=== PATIENT | female | born 2000 | race Caucasian/White ===

== ENCOUNTER → 2019-01-28 | Outpatient (REF) | payer OTHER | LOC: M LAB LCGH 14:05 | PROVIDERS: ATTEND Orthopaedic Surgery | DX: Z18.9 Retained foreign body fragments, unspecified material (principal) ==

== ENCOUNTER → 2021-05-29 | Outpatient (CLI) | payer MEDICAID, OTHER ==
[~2021-05-29] MED LIST: ENSK1TAB3 PO
== END ==
LOC: M LABSMTC 11:06
PROVIDERS: ATTEND Anesthesiology
DX: Z01.818 Encounter for other preprocedural examination (principal); Z11.52 Encounter for screening for COVID-19

== ENCOUNTER 2021-06-03 06:04 | Day surgery (SDC) | payer MEDICAID ==
[~2021-06-03] VITALS: Ht 167.6 cm; Wt 79.1 kg
[~2021-06-03 06:04] MED LIST changes: +LR 1,000 ML IV ONE
[2021-06-03] MEDS ORDERED: OXYMETAZOLINE 0.05% NASAL SPRAY (AFRIN) As Ordered ONE (07:09)
[2021-06-03] MEDS ORDERED: BUPIVACAINE/EPIN 0.5% 30 ML VIAL As Ordered ONE (07:10)
[2021-06-03] MEDS ORDERED: propofoL 200 MG/20 ML VIAL As Ordered ONE (07:19)
[2021-06-03] MEDS ORDERED: LIDOCAINE 2% 100MG/5ML SDV (FOR ANES.) As Ordered ONE (07:19)
[2021-06-03] MEDS ORDERED: ROCURONIUM BROMIDE 50 MG/5 ML VIAL As Ordered ONE (07:19)
[2021-06-03] MEDS ORDERED: fentaNYL 250 MCG/5 ML INJECTION As Ordered ONE (07:20)
[2021-06-03] MEDS ORDERED: MIDAZOLAM INJ 2MG/2ML VIAL (J2250 PER 1MG) As Ordered ONE (07:20)
[2021-06-03] MEDS ORDERED: ONDANSETRON 4MG/2ML VIAL As Ordered ONE (07:43)
[2021-06-03] MEDS ORDERED: ACETAMINOPHEN 1000MG 100ML IV BTL (OFIRMEV) (J0131 PER 10MG) As Ordered ONE (07:43)
[2021-06-03] MEDS ORDERED: dexameTHASONE 4 MG/ML 1ML VIAL (J1100 PER 1MG) As Ordered ONE (07:43)
[2021-06-03] MEDS ORDERED: KETOROLAC 60MG 2ML VIAL As Ordered ONE (07:43)
[2021-06-03] MEDS ORDERED: SUGAMMADEX SODIUM 500 MG/5 ML VIAL (BRIDION) As Ordered ONE (07:50)
[2021-06-03] MEDS ORDERED: METOCLOPRAMIDE INJ 10MG/2ML VIAL (J2765 PER 1) IV PRN (08:20)
[2021-06-03] MEDS ORDERED: PERCOCET 5MG/325MG TAB PO PRN (08:20)
[2021-06-03] MEDS ORDERED: LR 1,000 ML IV SCH ×2 (08:20→08:40)
[2021-06-03] MEDS ORDERED: fentaNYL 100 MCG/2 ML INJECTION IV PRN (08:20)
[2021-06-03] MEDS ORDERED: ONDANSETRON 4MG/2ML VIAL IV PRN ×2 (08:20→08:45)
[2021-06-03] MEDS ORDERED: HYDROcodone/APAP LIQUID 7.5-325MG 15ML UDC (LORTAB ELIXIR) PO PRN (08:45)
[2021-06-03 10:13] VITALS: BP 129/80
== END 2021-06-03 10:30 | disposition home or self-care (01) ==
LOC: M SDC 06:04
PROVIDERS: ATTEND Otolaryngology
DX: J35.01 Chronic tonsillitis (principal); J45.909 Unspecified asthma, uncomplicated; Z79.899 Other long term (current) drug therapy
CPT/HCPCS: 42826; 81025; 88302; J0131; J1100; J2250; J2405; J3010